=== PATIENT | female | born 2000 | race Caucasian/White ===

== ENCOUNTER 2020-09-21 14:51 | Emergency (ER) | payer SELFPAY ==
[2020-09-21] MEDS ORDERED: ACETAMINOPHEN 325 MG TABLET PO ONE (16:13)
--- NOTE | 2020-09-21 16:19 | ER Document Report ---
ED Hand/Wrist Injury - General Chief Complaint: Hand Pain Stated Complaint: RIGHT HAND PAIN,SWELLING Time Seen by Provider: 09/21/20 16:13 Primary Care Provider: ARELIS VARGAS MD [Primary Care Provider] - Follow up as needed Mode of Arrival: Ambulatory Information source: Patient Notes: Patient is a 20-year-old female comes emergency room complaint of right hand pa in. Patient states she was upset yesterday had a phone in her right hand car door opened up patient slammed her right hand on top of the thin edge of the car door. It is swollen up and she is having a difficult time closing her hand. Denies any other injuries. Patient denies any other medical problems. Only medications he currently takes is oral control. She does not smoke drink or do drugs. - Related Data Allergies/Adverse Reactions: No Known Allergies Allergy (Unverified 09/21/20 16:07) Past Medical History - General Information source: Patient - Social History Smoking Status: Never Smoker Cigarette use (# per day): No Chew tobacco use (# tins/day): No Smoking Education Provided: No Frequency of alcohol use: None Drug Abuse: None Lives with: Family Family History: Reviewed & Not Pertinent Patient has homicidal ideation: No Review of Systems - Review of Systems Constitutional: No symptoms reported EENT: No symptoms reported Cardiovascular: No symptoms reported Respiratory: No symptoms reported Gastrointestinal: No symptoms reported Genitourinary: No symptoms reported Female Genitourinary: No symptoms reported Musculoskeletal: See HPI, Joint pain Skin: No symptoms reported Hematologic/Lymphatic: No symptoms reported Neurological/Psychological: No symptoms reported -: Yes All other systems reviewed and negative Physical Exam - Vital signs Vitals: Temp Pulse Resp BP Pulse Ox 98.0 F 86 19 138/89 H 98 09/21/20 15:03 09/21/20 15:03 09/21/20 15:03 09/21/20 15:03 09/21/20 15:03 Interpretation: Hypertensive - Notes Notes: PHYSICAL EXAMINATION: GENERAL: Well-appearing, well-nourished and in no acute distress. HEAD: Atraumatic, normocephalic. EYES: Pupils equal round and reactive to light, extraocular movements intact, conjunctiva are normal. LUNGS: Breath sounds clear to auscultation bilaterally and equal. No wheezes rales or rhonchi. HEART: Regular rate and rhythm without murmurs Musculoskeletal: Examination patient's area concern is her right hand. Patient has swelling on her dorsal aspect of the right hand at the fifth metacarpal area. She has full flexion-extension of the little finger good cap refill in the nailbeds of the little finger. She has decreased director of marketing operations strength secondary to pain and discomfort. The swelling seems to go around to the lateral side of the fifth metacarpal just to the palmar side. Mild discoloration is noted on the dorsal aspect. No overt deformity is noted. NEUROLOGICAL: Normal speech, normal gait. Normal sensory, motor exams PSYCH: Normal mood, normal affect. SKIN: Warm, Dry, normal turgor, no rashes or lesions noted. Course - Re-evaluation Re-evalutation: 09/21/20 19:31 Patient was found to have a subtle fracture only on 1 view of the fifth metacarpal. She is placed in a right ulnar gutter splint/boxer splint and given the name of orthopedics follow-up with. - Vital Signs Vital signs: Temp Pulse Resp BP Pulse Ox 98.0 F 86 19 138/89 H 98 09/21/20 15:03 09/21/20 15:03 09/21/20 15:03 09/21/20 15:03 09/21/20 15:03 Procedures - Immobilization Right Lateral Hand Pre-Proc Neuro Vasc Exam: Normal Immobilizer type: Ulnar, Other - /Boxer Performed by: PCT Post-Proc Neuro Vasc Exam: Normal Alignment checked and good: Yes Discharge - Discharge Clinical Impression: Fracture of fifth metacarpal bone Qualifiers: Encounter type: initial encounter Fracture type: closed Metacarpal location: base Fracture alignment: nondisplaced Laterality: right Qualified Code(s): S62.346A - Nondisplaced fracture of base of fifth metacarpal bone, right hand, initial encounter for closed fracture Condition: Stable Disposition: HOME, SELF-CARE Instructions: Fractured Finger ([facility]) Additional Instructions: Leave the splint on until you follow-up with orthopedist. I am giving him the orthopedic on-call today you will need to contact his office to see if he can accommodate you. Ice to the area 3 times a day. Ibuprofen and Tylenol for pain. Keep it elevated above the heart as much as possible for the next 3 to 4 days to the swelling will go down. Return to ER if you have any concerns or problems. Forms: Elevated Blood Pressure Referrals: ARELIS VARGAS MD [Primary Care Provider] - Follow up as needed LONDON METZGER DO [ACTIVE STAFF] - Follow up as needed
--- NOTE | 2020-09-21 16:57 | RADIOLOGY REPORT (SQ) ---
EXAM DESCRIPTION: HAND RIGHT 3 VIEWS IMAGES COMPLETED DATE/TIME: 09/21/2020 4:48 pm REASON FOR STUDY: Swelling COMPARISON: None. EXAM PARAMETERS: NUMBER OF VIEWS: Three views. TECHNIQUE: AP, lateral and oblique radiographic images acquired of the right hand. LIMITATIONS: The patient was unable to remove the ring from the 4th digit. FINDINGS: MINERALIZATION: Normal. BONES: Linear lucency at the proximal 5th metacarpal. This is seen on only one view the nondisplaced fracture cannot be excluded. JOINTS: No effusions. SOFT TISSUES: Soft tissue swelling dorsally. OTHER: No other significant finding. IMPRESSION: Possible nondisplaced fracture of the proximal aspect of the 5th metacarpal. This is se en on the AP projection only. There is soft tissue swelling dorsally. TECHNICAL DOCUMENTATION: JOB ID: [id number] [employer]- All Rights Reserved Reading location - IP/workstation name: [email or web address]
[2020-09-22 04:28] VITALS: BP 119/77
== END 2020-09-21 20:00 | disposition home or self-care (01) ==
LOC: ER 14:51
DX: S62.346A Nondisplaced fracture of base of fifth metacarpal bone, right hand, initial encounter for closed fracture (principal); W23.1XXA Caught, crushed, jammed, or pinched between stationary objects, initial encounter; Z79.3 Long term (current) use of hormonal contraceptives
CPT/HCPCS: 99283